=== PATIENT | female | born 1955 | race Caucasian/White ===

== ENCOUNTER 2022-06-06 16:03 | Inpatient (IN) ==
[~2022-06-06 16:03] MED LIST: hydrALAZINE HCL 20 MG/ML VIAL IV ONE
--- NOTE | 2022-06-06 16:11 | ED Triage Note ---
Date of Service June 06, 2022 History of Present Illness This patient was briefly evaluated while in triage. An abbreviated physical exam was performed. This patient is a 66-year-old Female with past medical history of "both of her carotid arteries are 100% blocked" who presents to the ED for evaluation of " she's having stroke symptoms again" per son. Pt. having L side paralysis, neck pain. Symptoms began 2 days ago, was seen in the ED ([place]), symptoms getting worse. On plavix. Physical Exam VITALS: Vitals are noted on the nurse's note and reviewed by myself. GENERAL: This is a 66 year old white female, in no acute distress, nondiaphoretic, well-developed well-nourished. SKIN: no rashes, edema, erythema HEAD: Normocephalic atraumatic. EYES: Conjunctivae without injection, sclerae without icterus. Extraocular movements intact. NECK: No lymphadenopathy. Cervical spine is nontender. No JVD. HEART: Regular rate and rhythm without murmurs gallops or rubs. LUNGS: Clear to auscultation bilaterally without wheezes, rales or rhonchi. No retractions or accessory muscle use. MUSCULOSKELETAL: Pt. in wheelchair. Weakness LUE, LLE. NEURO: Patient was alert and oriented to person place and time. Left side weakness, LUE, LLE. Campus Interviews Intern strength 1/5 LUE. Initial orders for labs and / or imaging were placed and patient was placed in the waiting area until a bed is available. Please see further documentation for the full ED course.
--- NOTE | 2022-06-06 16:44 | Emergency Department Note ---
Impression & Plan Cerebrovascular accident, Bilateral carotid artery disease ED Provider Note NAME: DARIAN DIEGO AGE: 66 SEX: F : 1955 ARRIVES VIA: Walk-In INFORMANT: Patient, the patient's son and [id number] ED PROVIDER(S): Cruz Simmons DO CHIEF COMPLAINT: Weakness HPI: The patient is a 66-year-old female who presented to the emergency department through triage with her family members for an evaluation of left- sided weakness. The patient has a history of CVA. She was recently treated for CVA. She was seen at multiple local hospitals and ultimately was recently discharged from inpatient rehab for having a stroke which affected the left side of her body. She has bilateral carotid artery disease. She is not been seen in our facility. She is being established with a local primary care physician. The family noted that over the last few days she was starting to have worsening symptoms including worsening left-sided weakness and confusion as well as a headache which was in her occipital region. The patient has been compliant with her outpatient medications. Apparently they had a scheduled appointment with her primary care physician today. They were told to come directly to the ER rather than the office because the patient's symptoms. She has had no vomiting or falls. She has no lower extremity swelling. According to the family she is not a candidate for operative management of her carotid artery disease. ROS: See above HPI for pertinent positives & negatives. A total of 10 systems reviewed and were otherwise negative. PAST MEDICAL HISTORY: See Below PAST SURGICAL HISTORY: See Below FAMILY HISTORY: See Below SOCIAL HISTORY: See Below HOME MEDICATIONS: See Below ALLERGIES: See Below VITALS: See Below PHYSICAL EXAMINATION: GENERAL: The patient is awake and alert. The patient does not appear to be uncomfortable. EYES: The conjunctivae are clear. The pupils are round and reactive. EARS, NOSE, MOUTH AND THROAT: The nose is without any evidence of any deformity. NECK: The neck is nontender and supple. RESPIRATORY: Normal respiratory effort is noted there is no evidence of wheezing rhonchi or rales CARDIOVASCULAR: Regular heart sounds are noted auscultation. Systolic murmur suggested. GASTROINTESTINAL: The abdomen is soft. Abdomen is nontender. MUSCULOSKELETAL/EXTREMITIES: There is no evidence of gross deformity full range of motion is noted in the hips and shoulders. SKIN: There is no obvious evidence of any rash. There are no petechiae, pallor or cyanosis noted. NEUROLOGIC: Patient is awake alert and oriented to person place and situation. She recognizes her family members. Automotive L[employer] Technician strength is absent in the left upper extremity. The patient is unable to lift the left leg off the bed. MEDICAL DECISION MAKING: The patient is a 66-year-old female who presented to the emergency department for an evaluation of strokelike symptoms. The patient does have a history of carotid artery disease. She had a significant stroke leaving her with left- sided weakness. Her family felt that her symptoms were worsening. She presented to our emergency department for further evaluation. The patient was found to have signs of subacute infarct which likely explain the patient's more recent symptoms. I do feel it is possible that these plaques and occlusions in her carotid arteries could be continuing to shower emboli. I discussed this with the family. She currently is on antiplatelet therapy. I discussed the case with the on-call [facility] hospitalist. They have agreed to evaluate the patient in the emergency department for further management and disposition. Triage Nursing notes reviewed. Prior medical records reviewed Vital Signs: reviewed and remarkable for elevated blood pressure Differential diagnosis: Infection, dehydration, metabolic abnormality, hypo/hyperglycemia, electrolyte disturbance, anemia, hypoxia, cardiac sources, intracerebral event, toxicologic, neurologic, as well as other pathologies. ER treatment provided: See below Diagnostics interpreted by me: ECG: EKG was obtained in the emergency department. My interpretation is normal sinus rhythm at 93 bpm. There is no ectopy. There was no acute ST segment abnormalities noted. No previous tracing was available. Cardiac Monitoring: An order was placed for continuous cardiac monitoring. The monitor shows a rate of 69 bpm with sinus rhythm. Laboratory studies: As stated above and show below. Imaging studies: See below Consultation(s): I discussed this case with Dr. Araiza Past Med/Surg History Medical History (Updated 06/06/22 @ 21:31 by Cruz Simmons DO) Carotid artery disease CVA (cerebral vascular accident) High cholesterol Social History Smoking Status: Former smoker Preferred Language: Icelandic Feels Safe at Home: Yes Allergies Allergies Allergy/AdvReac Type Severity Reaction Status Date / Time No Known Allergies Allergy Unverified 06/06/22 20:24 Home Meds Home Medications Medication Instructions Recorded Confirmed aspirin 81 mg chewable tablet 81 mg PO DAILY 06/06/22 06/06/22 atorvastatin 40 mg tablet 80 mg PO DAILY 06/06/22 06/06/22 clopidogrel 75 mg tablet 75 mg PO DAILY 06/06/22 06/06/22 midodrine 2.5 mg tablet 2.5 mg PO TID 06/06/22 06/06/22 multivitamin 1 tab PO DAILY 06/06/22 06/06/22 Results & Data (ED) Vital Signs Vital Signs - 24 hr 06/06/22 16:05 06/06/22 16:40 06/06/22 18:04 Temperature 36.9 C Temperature Source Temporal Artery Scan Pulse Rate 96 H Pulse Rate [Apical] 73 69 Pulse Rhythm Regular Pulse Strength Normal Respiratory Rate 20 18 18 Respiratory Effort / Characteristics Non-Labored Spontaneous Non-Labored Spontaneous Non-Labored Spontaneous Respiratory Depth Normal Normal Normal Respiratory Pattern Regular Regular Regular Blood Pressure 115/69 Blood Pressure [Right Arm] 163/82 H 152/75 H Blood Pressure Mean 84 Blood Pressure Mean [Right Arm] 109 100 Blood Pressure Position Sitting Blood Pressure Position [Right Arm] Sitting Sitting Pulse Oximetry 95 97 97 Oxygen Delivery Method Room Air Room Air Room Air Sepsis Recent Fever Within 48 Hours No Sepsis New/Unexplained Change in Mental Status No Sepsis Action Taken by Nursing No Action Required Laboratory Data Attestation: I reviewed the patient's lab results. Result diagrams: 06/06/22 16:29 06/06/22 16:29 Lab Results 06/06/22 06/06/22 06/06/22 Range/Units 16:29 16:29 16:29 WBC 8.96 (4.8-10.8) K/ul RBC 4.08 (3.93-5.22) M/uL Hgb 12.2 (12.0-16.0) g/dl Hct 36.2 (34.1-44.9) % MCV 88.7 (80.0-100.0) fL MCH 29.9 (25.0-34.0) pg MCHC 33.7 (32.0-36.0) g/dL RDW Std Deviation 43.4 (36.4-46.3) fL RDW Coeff of Gilbert 13.2 (11.5-14.5) % Plt Count 350 (130-400) K/uL MPV 10.7 (9.4-12.3) fL Immature Gran % (Auto) 0.1 % Neut % (Auto) 61.9 % Lymph % (Auto) 23.7 % [place] % (Auto) 9.3 % Eos % (Auto) 4.0 % Baso % (Auto) 1.0 % Neut # (Auto) 5.55 (1.4-6.5) K/uL Lymph # (Auto) 2.12 (1.2-3.4) K/uL [place] # (Auto) 0.83 H (0.24-0.82) K/uL Eos # (Auto) 0.36 (0-0.50) K/uL Baso # (Auto) 0.09 (0-0.2) K/uL Immature Gran # (Auto) 0.01 (0.00-0.02) K/uL PT 10.3 (9.0-12.0) Seconds INR 1.0 (0.9-1.1) APTT 25.4 (21.0-31.0) Seconds PTT Ratio 0.9 Sodium 139 (136-145) mmol/L Potassium 4.3 (3.5-5.1) mmol/L Chloride 106 (98-107) mmol/L Carbon Dioxide 27 (21-32) mmol/L Anion Gap 6 (3-11) BUN 18 (6-23) mg/dl Creatinine 0.73 (0.6-1.2) mg/dl Est Cr Clr Drug Dosing Not Reportable Est GFR ( Amer) 98.1 ml/min Est GFR (Non-Af Amer) 84.6 ml/min BUN/Creatinine Ratio 24.7 H (10-20) Glucose 98 (70-99(Fasting)) mg/dl Calcium 9.7 (8.5-10.1) mg/dl Magnesium 2.2 (1.7-2.4) mg/dl Total Bilirubin 0.3 (0.2-1.0) mg/dl AST 38 (13-39) U/L ALT 62 H (7-52) U/L Alkaline Phosphatase 147 H (34-104) U/L Troponin I High Sens 5.7 (0-14) pg/ml Total Protein 7.5 (6.0-8.3) gm/dl Albumin 4.5 (3.4-5.0) gm/dl Globulin 3.0 (2.5-4.0) gm/dl Albumin/Globulin Ratio 1.5 (0.9-2) SARS-CoV-2, RNA, NAAT (NEGATIVE) 06/06/22 Range/Units 17:09 WBC (4.8-10.8) K/ul RBC (3.93-5.22) M/uL Hgb (12.0-16.0) g/dl Hct (34.1-44.9) % MCV (80.0-100.0) fL MCH (25.0-34.0) pg MCHC (32.0-36.0) g/dL RDW Std Deviation (36.4-46.3) fL RDW Coeff of Gilbert (11.5-14.5) % Plt Count (130-400) K/uL MPV (9.4-12.3) fL Immature Gran % (Auto) % Neut % (Auto) % Lymph % (Auto) % [place] % (Auto) % Eos % (Auto) % Baso % (Auto) % Neut # (Auto) (1.4-6.5) K/uL Lymph # (Auto) (1.2-3.4) K/uL [place] # (Auto) (0.24-0.82) K/uL Eos # (Auto) (0-0.50) K/uL Baso # (Auto) (0-0.2) K/uL Immature Gran # (Auto) (0.00-0.02) K/uL PT (9.0-12.0) Seconds INR (0.9-1.1) APTT (21.0-31.0) Seconds PTT Ratio Sodium (136-145) mmol/L Potassium (3.5-5.1) mmol/L Chloride (98-107) mmol/L Carbon Dioxide (21-32) mmol/L Anion Gap (3-11) BUN (6-23) mg/dl Creatinine (0.6-1.2) mg/dl Est Cr Clr Drug Dosing Est GFR ( Amer) ml/min Est GFR (Non-Af Amer) ml/min BUN/Creatinine Ratio (10-20) Glucose (70-99(Fasting)) mg/dl Calcium (8.5-10.1) mg/dl Magnesium (1.7-2.4) mg/dl Total Bilirubin (0.2-1.0) mg/dl AST (13-39) U/L ALT (7-52) U/L Alkaline Phosphatase (34-104) U/L Troponin I High Sens (0-14) pg/ml Total Protein (6.0-8.3) gm/dl Albumin (3.4-5.0) gm/dl Globulin (2.5-4.0) gm/dl Albumin/Globulin Ratio (0.9-2) SARS-CoV-2, RNA, NAAT NEGATIVE (NEGATIVE) Administered Medications Sodium Chloride (Nss 1000ml) 1,000 mls @ 60 mls/hr IV .[id number] ONE Stop: 06/07/22 12:07 Last Admin: 06/06/22 19:40 Dose: 60 mls/hr Documented by: [id number] Discontinued Medications Ioversol (Optiray 320 125ml) 120 ml IV ONCE ONE Stop: 06/06/22 18:01 Last Admin: 06/06/22 18:01 Dose: 120 ml Documented by: [id number] Imaging Data Radiologist's Impression: Head CT 06/06/22 16:11 CT OF THE HEAD WITHOUT CONTRAST CLINICAL HISTORY: Stroke Like Symptoms COMPARISON STUDY: No previous studies for comparison. TECHNIQUE: Helical axial images of the head were obtained without IV contrast. Automated exposure control was utilized for the study. A dose lowering technique was utilized adhering to the principles of ALARA. FINDINGS: No acute intracranial hemorrhage, midline shift or mass effect is present. The ventricular system is unremarkable. Basal cisterns are patent. There are no extra-axial collections. White matter hypodensity suggests small vessel disease. Note is made of a 2.3 x 2 cm hypodense focus with loss of silva- white differentiation within the anterior medial right frontal lobe shown on axial image 17 of 32. There is no significant mass effect. A white matter hypodensity measuring 3.1 cm within the right frontoparietal region on axial image 23 is noted. IMPRESSION: 1. No acute intracranial hemorrhage or mass effect. 2. 2.3 x 2 cm hypodense focus with loss of silva-white differentiation within the anterior medial right frontal lobe. This represents an acute to subacute infarct. No mass effect. No hemorrhage. 3. 3.1 cm hypodense focus within the right matter of the right frontoparietal region. This favors small vessel disease although an additional acute to subacute infarct could appear similar. ACT 112: Negative or not required by law. Electronically signed by: Todd Jensen M.D. 06/06/2022 6:15 PM Head CTA 06/06/22 16:11 CTA ANGIOGRAPHY OF THE HEAD CLINICAL HISTORY: Stroke Like Symptoms COMPARISON STUDY: No previous studies for comparison. TECHNIQUE: Helical axial images of the head were obtained following uneventful intravenous administration of 120 cc of Optiray. Sagittal and coronal reconstructions were viewed as well as maximal intensity projections on an independent 3-D workstation. Automated exposure control was utilized for the study. A dose lowering technique was utilized adhering to the principles of ALARA. FINDINGS: Head CT will be reported separately. Ventricular system is normal. Basal cisterns are patent. An acute to subacute infarct within the anterior medial right frontal lobe is better depicted on the head CT. There is occlusion of the cervical portions of the bilateral internal carotid arteries with reconstitution at the level of the petrous portions. The petrous and cavernous portion of the right internal carotid artery is diminutive. The right M1 and M2 segments are patent. The right A1 segment is patent. Right A1 segment is patent. There is occlusion of a branch of the right anterior cerebral artery segment shown on axial image 117 of 249. This accounts for the infarct shown on head CT. The left A1, A2, M1 and M2 segments are patent. There is no intracranial aneurysm. persistence of the right posterior cerebral artery is noted. Intracranial portions of the vertebral arteries are patent. Basilar artery is patent. IMPRESSION: 1. Occlusion of the bilateral cervical internal carotid arteries with reconstitution at the level of the petrous portions of the carotids. 2. Occlusion of a branch of the right anterior cerebral artery which accounts for the acute to subacute infarct shown on head CT. 3. No additional sites of vessel occlusion identified within the intracranial circulation. ACT 112: Negative or not required by law. Electronically signed by: Todd Jensen M.D. 06/06/2022 6:49 PM Neck CTA 06/06/22 16:11 CT ANGIOGRAPHY OF THE NECK WITH CONTRAST CLINICAL HISTORY: Stroke Like Symptoms COMPARISON STUDY: No previous studies for comparison. Technique: CT angiography of the carotid and vertebral arteries was obtained using Optiray and 3D reconstruction on an independent workstation. NASCET criteria was utilized. Automated exposure control was utilized for the study. A dose lowering technique was utilized adhering to the principles of ALARA. CT DOSE: 1729.98 mGy.cm Findings: Emphysema is noted within the lung apices. There is no cervical lymphadenopathy. The bilateral vertebral arteries are patent. No stenosis or dissection within the cervical portions of the bilateral vertebral arteries is noted. The bilateral common carotid arteries are patent. There is moderate atherosclerotic plaque of the aortic arch. Extensive plaque within the bilateral cervical internal carotid arteries is noted. The bilateral cervical internal carotid arteries are occluded at their origins with reconstitution at the level of the petrous portions of the carotids. CT of the head will be reported separately. IMPRESSION: 1. Severe atherosclerotic disease with occlusion of the bilateral cervical internal carotid arteries with reconstitution at the level of the petrous portions of the carotids. 2. Patent bilateral vertebral arteries. ACT 112: Negative or not required by law. Electronically signed by: Todd Jensen M.D. 06/06/2022 6:44 PM Discharge Plan Visit Data Chief Complaint: Stroke/CVA Symptoms Stated Complaint: L SIDE WEAKNESS. LOSS OF MOBILITY. PAIN IN NECK ED Provider: Cruz Simmons Discharge Problem: Cerebrovascular accident, Bilateral carotid artery disease Patient Disposition: Being Evaluated by Hospitalist Forms Stand Alone Forms: My [facility]Anthem Prescriptions Prescriptions: No Action multivitamin Tablet 1 tab PO DAILY RF: 0 atorvastatin 40 mg tablet 80 mg PO DAILY RF: 0 clopidogrel 75 mg tablet 75 mg PO DAILY RF: 0 aspirin [Baby Aspirin] 81 mg Tablet,Chewable 81 mg PO DAILY RF: 0 midodrine 2.5 mg tablet 2.5 mg PO TID RF: 0 Referrals Referrals: PCP,NO [Physician] -
[2022-06-06 17:02] LABS: Alanine Aminotransferase 62 U/L (7-52); Albumin Globulin Ratio 1.5 (0.9-2); Albumin Level 4.5 gm/dl (3.4-5.0); Alkaline Phosphatase 147 U/L (34-104); Anion Gap 6 (3-11); Aspartate Aminotransferase 38 U/L (13-39); BUN Creatinine Ratio 24.7 (10-20); Bilirubin,Total 0.3 mg/dl (0.2-1.0); Blood Urea Nitrogen 18 mg/dl (6-23); Calcium 9.7 mg/dl (8.5-10.1); Carbon Dioxide 27 mmol/L (21-32); Chloride 106 mmol/L (98-107); Est GFR (African American) 98.1 ml/min; Est GFR (Non-African American) 84.6 ml/min; Glucose 98 mg/dl (70-99(Fasting)); Magnesium 2.2 mg/dl (1.7-2.4); Potassium 4.3 mmol/L (3.5-5.1); Sodium 139 mmol/L (136-145); Total Protein 7.5 gm/dl (6.0-8.3)
[2022-06-06 17:05] LABS: Basophils # (auto) 0.09 K/uL (0-0.2); Eosinophils # (auto) 0.36 K/uL (0-0.50); Hematocrit (blood only) 36.2 % (34.1-44.9); Hemoglobin 12.2 g/dl (12.0-16.0); Immature Granulocytes # (auto) 0.01 K/uL (0.00-0.02); Immature Granulocytes % (auto) 0.1 %; Lymphocytes # (auto) 2.12 K/uL (1.2-3.4); Lymphocytes % (auto) 23.7 %; Mean Corpuscular Hemoglobin 29.9 pg (25.0-34.0); Mean Corpuscular Hgb Conc 33.7 g/dL (32.0-36.0); Mean Corpuscular Volume 88.7 fL (80.0-100.0); Mean Platelet Volume 10.7 fL (9.4-12.3); Monocytes # (auto) 0.83 K/uL (0.24-0.82); Monocytes % (auto) 9.3 %; Neutrophils # (auto) 5.55 K/uL (1.4-6.5); Neutrophils % (auto) 61.9 %; Platelet Count 350 K/uL (130-400); RDW Coefficient of Variation 13.2 % (11.5-14.5); RDW Standard Deviation 43.4 fL (36.4-46.3); Red Blood Count 4.08 M/uL (3.93-5.22); White Blood Count 8.96 K/ul (4.8-10.8)
[2022-06-06 17:06] LABS: Partial Thromboplastin Ratio 0.9; Partial Thromboplastin Time 25.4 Seconds (21.0-31.0); Prothrombin Time 10.3 Seconds (9.0-12.0)
[2022-06-06 17:08] LABS: Troponin I High Sensitivity 5.7 pg/ml (0-14)
[2022-06-06] MEDS ORDERED: OPTIRAY 320 125ml IV ONE (18:00)
--- NOTE | 2022-06-06 18:17 | CT Scan Report ---
CT OF THE HEAD WITHOUT CONTRAST CLINICAL HISTORY: Stroke Like Symptoms COMPARISON STUDY: No previous studies for comparison. TECHNIQUE: Helical axial images of the head were obtained without IV contrast. Automated exposure con trol was utilized for the study. A dose lowering technique was utilized adhering to the principles o f ALARA. FINDINGS: No acute intracranial hemorrhage, midline shift or mass effect is present. The ventricular system is unremarkable. Basal cisterns are patent. There are no extra-axial collections. White matter hypodensity suggests small vessel disease. Note is made of a 2.3 x 2 cm hypodense focus with loss of silva-white differentiation within the anterior medial right frontal lobe shown on axial image 17 of 32. There is no significant mass effect. A white matter hypodensity measuring 3.1 cm within the right frontoparietal region on axial image 23 is noted. IMPRESSION: 1. No acute intracranial hemorrhage or mass effect. 2. 2.3 x 2 cm hypodense focus with loss of silva-white differentiation within the anterior medial righ t frontal lobe. This represents an acute to subacute infarct. No mass effect. No hemorrhage. 3. 3.1 cm hypodense focus within the right matter of the right frontoparietal region. This favors sma ll vessel disease although an additional acute to subacute infarct could appear similar. ACT 112: Negative or not required by law. Electronically signed by: Todd Jensen M.D. 06/06/2022 6:15 PM
--- NOTE | 2022-06-06 18:47 | CT Scan Report ---
CT ANGIOGRAPHY OF THE NECK WITH CONTRAST CLINICAL HISTORY: Stroke Like Symptoms COMPARISON STUDY: No previous studies for comparison. Technique: CT angiography of the carotid and vertebral arteries was obtained using Optiray and 3D rec onstruction on an independent workstation. NASCET criteria was utilized. Automated exposure control was utilized for the study. A dose lowering technique was utilized adhering to the principles of ALA RA. CT DOSE: 1729.98 mGy.cm Findings: Emphysema is noted within the lung apices. There is no cervical lymphadenopathy. The bilate ral vertebral arteries are patent. No stenosis or dissection within the cervical portions of the bila teral vertebral arteries is noted. The bilateral common carotid arteries are patent. There is moderat e atherosclerotic plaque of the aortic arch. Extensive plaque within the bilateral cervical internal carotid arteries is noted. The bilateral cervical internal carotid arteries are occluded at their dilip gins with reconstitution at the level of the petrous portions of the carotids. CT of the head will be reported separately. IMPRESSION: 1. Severe atherosclerotic disease with occlusion of the bilateral cervical internal carotid arteries with reconstitution at the level of the petrous portions of the carotids. 2. Patent bilateral vertebral arteries. ACT 112: Negative or not required by law. Electronically signed by: Todd Jensen M.D. 06/06/2022 6:44 PM
--- NOTE | 2022-06-06 18:52 | CT Scan Report ---
CTA ANGIOGRAPHY OF THE HEAD CLINICAL HISTORY: Stroke Like Symptoms COMPARISON STUDY: No previous studies for comparison. TECHNIQUE: Helical axial images of the head were obtained following uneventful intravenous administr ation of 120 cc of Optiray. Sagittal and coronal reconstructions were viewed as well as maximal inten sity projections on an independent 3-D workstation. Automated exposure control was utilized for the study. A dose lowering technique was utilized adhering to the principles of ALARA. FINDINGS: Head CT will be reported separately. Ventricular system is normal. Basal cisterns are paten t. An acute to subacute infarct within the anterior medial right frontal lobe is better depicted on t he head CT. There is occlusion of the cervical portions of the bilateral internal carotid arteries wi th reconstitution at the level of the petrous portions. The petrous and cavernous portion of the righ t internal carotid artery is diminutive. The right M1 and M2 segments are patent. The right A1 segmen t is patent. Right A1 segment is patent. There is occlusion of a branch of the right anterior cerebra l artery segment shown on axial image 117 of 249. This accounts for the infarct shown on head CT. The left A1, A2, M1 and M2 segments are patent. There is no intracranial aneurysm. persistence of the right posterior cerebral artery is noted. Intracranial portions of the vertebral arteries are pat ent. Basilar artery is patent. IMPRESSION: 1. Occlusion of the bilateral cervical internal carotid arteries with reconstitution at the level of the petrous portions of the carotids. 2. Occlusion of a branch of the right anterior cerebral artery which accounts for the acute to subacu te infarct shown on head CT. 3. No additional sites of vessel occlusion identified within the intracranial circulation. ACT 112: Negative or not required by law. Electronically signed by: Todd Jensen M.D. 06/06/2022 6:49 PM
[2022-06-06] MEDS ORDERED: SODIUM CHLORIDE 0.9% 1000ML 1,000 ML IV ONE (19:28)
--- NOTE | 2022-06-06 20:13 | History & Physical Report ---
Date of Service June 06, 2022 Assessment & Plan (1) Cerebrovascular accident: Plan: Recurrent CVA Possible embolic source hx PVD hyperlipidemia on statin Rx Moderate aortic stenosis orthostatic hypotension on midodrine, compensatory BP elevation likely secondary to stroke LLE swelling rule out DVT Prediabetes, outpatient hemoglobin A1c of 5.10 May 2022 past tobacco abuse Medical telemetry Neurochecks Continue antiplatelet Rx Updated TTE given recurrent stroke Neurology consult Re: Recurrent CVA LLE venous Dopplers rule out DVT PT OT eval DVT prophylaxis per Lovenox subcu Full code Patient son requesting updates from providers. Mr. Jabari Navarrete, contact #[phone]. Text document was generated using Antidot voice recognition software. It may contain grammatical or spelling errors. Kindly contact undersigned for clarification of any documentation item in question. History of Present Illness Chief Complaint: Left-sided weakness Primary Care Provider: Luis Curry MD History obtained from patient, family, and records. Medical history significant for CVA, PVD, hyperlipidemia, aortic stenosis, orthostatic hypotension on midodrine, prediabetes, past tobacco abuse. Patient was seen/confined at different ERs/hospitals in [place] for strokelike symptoms 6 weeks ago. Last confinement [facility] May 07 to 2021 for acute ischemic stroke presenting as presented left-sided weakness/syncope as a transfer from [facility]. Pertinent diagnostics prior to [facility] confinement as follows : Brain MRI showed multiple small infarcts in the right hemisphere located at the right parietal cortex, right frontal white matter, right posterior periventricular white matter (largest lesion located adjacent to the atrium of the lateral ventricle on the right side measuring 6 mm.). MRA showed patent anterior communicating artery and widely patent vertebral and vascular arteries with patent right posterior communicating artery. CTA revealed complete occlusion of proximal bilateral internal carotid arteries. TTE showed moderate aortic stenosis with an EF of 60%, grade 1 diastolic dysfunction. Cerebral angiogram done at [facility] confirmed atherosclerotic disease with no evidence of moyamoya. Patient discharged to rehab facility on midodrine for orthostasis. Some improvement of left-sided weakness rehab stay from May 09-2021. Patient very active upon returning home as per family. 4 days ago, patient noted worsening left-sided weakness and trouble walking. No chest pain, no SOB. No slurred speech, no headache symptoms some neck pain without recollection of trauma. Did not tell family right away. Patient evaluated at [facility] ER 2 days ago. No focal neurologic deficits necessitating CT head as per ER provider documentation at time of exam. Patient discharged back home with negative work-up. Patient brought by family to ER for evaluation for worsening left-sided weakness. Left lower leg more swollen than usual as per family. Patient denies chest pain, SOB. Medical History as above Surgical History : None Family History : Stroke, blood clots Personal/Social history : Past tobacco abuse, no EtOH intake, retired from factory work Allergies Allergy/AdvReac Type Severity Reaction Status Date / Time No Known Allergies Allergy Unverified 06/06/22 20:24 Home Medications Medication Instructions Recorded Confirmed Type aspirin 81 mg chewable tablet 81 mg PO DAILY 06/06/22 06/06/22 History atorvastatin 40 mg tablet 80 mg PO DAILY 06/06/22 06/06/22 History clopidogrel 75 mg tablet 75 mg PO DAILY 06/06/22 06/06/22 History midodrine 2.5 mg tablet 2.5 mg PO TID 06/06/22 06/06/22 History multivitamin 1 tab PO DAILY 06/06/22 06/06/22 History Past Med/Surg History Medical History (Updated 06/06/22 @ 21:31 by Cruz Simmons DO) Carotid artery disease CVA (cerebral vascular accident) High cholesterol Social History Smoking Status: Former smoker Smoking End Date: 5 weeks ago; Hx Alcohol Use: Yes Hx Substance Use: No Preferred Language: Malay Communication Ability: Effective Breakfast Manager Required: No Beliefs That Will Affect Care: None Current Living Situation Comment: Lives with son and his Feels Safe at Home: Yes Safety Concerns: Feels Safe At This Time Assistive Devices: Glasses Review of Systems Review of Systems: As per HPI, all other systems reviewed and negative Physical Exam Physical Exam: GENERAL: Comfortable, slightly anxious, no respiratory distress SKIN: Normal color, warm HEENT: Bespectacled, Mullins palpebral conjunctivae, no ptosis, dry buccal mucosa NECK : Supple, no tenderness CHEST : Decreased breath sounds, no tenderness HEART : RRR, systolic murmur over sternal border and second right intercostal space ABDOMEN: Some distention, nontender EXTREMITIES : LLE swelling/tenderness, no other conspicuous deformities noted NEUROLOGIC : Coherent, no facial asymmetry, RUE/RLE 4/5, LUE 3/5 with some spasticity, LLE 2/5, gait and stance not assessed Results & Data Results & Data ([facility]) Vital Signs (Past 12 Hours) Vital Signs Temp Pulse Pulse Resp BP BP Pulse Ox 06/06/22 18:04 69 18 152/75 H 97 06/06/22 16:40 73 18 163/82 H 97 06/06/22 16:05 36.9 C 96 H 20 115/69 95 Laboratory Results Laboratory Results WBC 8.96 K/ul (4.8-10.8) 06/06/22 16:29 RBC 4.08 M/uL (3.93-5.22) 06/06/22 16:29 Hgb 12.2 g/dl (12.0-16.0) 06/06/22 16:29 Hct 36.2 % (34.1-44.9) 06/06/22 16:29 MCV 88.7 fL (80.0-100.0) 06/06/22 16:29 MCH 29.9 pg (25.0-34.0) 06/06/22 16:29 MCHC 33.7 g/dL (32.0-36.0) 06/06/22 16:29 RDW Std Deviation 43.4 fL (36.4-46.3) 06/06/22 16:29 RDW Coeff of Gilbert 13.2 % (11.5-14.5) 06/06/22 16:29 Plt Count 350 K/uL (130-400) 06/06/22 16:29 MPV 10.7 fL (9.4-12.3) 06/06/22 16:29 Immature Gran % (Auto) 0.1 % 06/06/22 16:29 Neut % (Auto) 61.9 % 06/06/22 16:29 Lymph % (Auto) 23.7 % 06/06/22 16:29 [place] % (Auto) 9.3 % 06/06/22 16:29 Eos % (Auto) 4.0 % 06/06/22 16:29 Baso % (Auto) 1.0 % 06/06/22 16:29 Neut # (Auto) 5.55 K/uL (1.4-6.5) 06/06/22 16: Lymph # (Auto) 2.12 K/uL (1.2-3.4) 06/06/22 16: [place] # (Auto) 0.83 K/uL (0.24-0.82) H 06/06/22 16:29 Eos # (Auto) 0.36 K/uL (0-0.50) 06/06/22 16: Baso # (Auto) 0.09 K/uL (0-0.2) 06/06/22 16: Immature Gran # (Auto) 0.01 K/uL (0.00-0.02) 06/06/22 16: PT 10.3 Seconds (9.0-12.0) 06/06/22 16: INR 1.0 (0.9-1.1) 06/06/22 16: APTT 25.4 Seconds (21.0-31.0) 06/06/22: PTT Ratio 0.9 06/06/22 16: Sodium 139 mmol/L (136-145) 06/06/22 16: Potassium 4.3 mmol/L (3.5-5.1) 06/06/22 16: Chloride 106 mmol/L (98-107) 06/06/22 16: Carbon Dioxide 27 mmol/L (21-32) 06/06/22 16:29 Anion Gap 6 (3-11) 06/06/22 16: BUN 18 mg/dl (6-23) 06/06/22 16: Creatinine 0.73 mg/dl (0.6-1.2) 06/06/22 16:29 Est Cr Clr Drug Dosing Not Reportable 06/06/22 16:29 Est GFR ( Amer) 98.1 ml/min 06/06/22 16: Est GFR (Non-Af Amer) 84.6 ml/min 06/06/22 16:29 BUN/Creatinine Ratio 24.7 (10-20) H 06/06/22 16:29 Glucose 98 mg/dl (70-99(Fasting)) 06/06/22 16: Calcium 9.7 mg/dl (8.5-10.1) 06/06/22 16:29 Magnesium 2.2 mg/dl (1.7-2.4) 06/06/22 16:29 Total Bilirubin 0.3 mg/dl (0.2-1.0) 06/06/22 16:29 AST 38 U/L (13-39) 06/06/22 16:29 ALT 62 U/L (7-52) H 06/06/22 16:29 Alkaline Phosphatase 147 U/L (34-104) H 06/06/22 16:29 Troponin I High Sens 5.7 pg/ml (0-14) 06/06/22 16:29 Total Protein 7.5 gm/dl (6.0-8.3) 06/06/22 16:29 Albumin 4.5 gm/dl (3.4-5.0) 06/06/22 16:29 Globulin 3.0 gm/dl (2.5-4.0) 06/06/22 16:29 Albumin/Globulin Ratio 1.5 (0.9-2) 06/06/22 16:29 SARS-CoV-2, RNA, NAAT NEGATIVE (NEGATIVE) 06/06/22 17:[address] 06/06/22 16:11 CT OF THE HEAD WITHOUT CONTRAST CLINICAL HISTORY: Stroke Like Symptoms COMPARISON STUDY: No previous studies for comparison. TECHNIQUE: Helical axial images of the head were obtained without IV contrast. Automated exposure control was utilized for the study. A dose lowering technique was utilized adhering to the principles of ALARA. FINDINGS: No acute intracranial hemorrhage, midline shift or mass effect is present. The ventricular system is unremarkable. Basal cisterns are patent. There are no extra-axial collections. White matter hypodensity suggests small vessel disease. Note is made of a 2.3 x 2 cm hypodense focus with loss of silva- white differentiation within the anterior medial right frontal lobe shown on axial image 17 of 32. There is no significant mass effect. A white matter hypodensity measuring 3.1 cm within the right frontoparietal region on axial image 23 is noted. IMPRESSION: 1. No acute intracranial hemorrhage or mass effect. 2. 2.3 x 2 cm hypodense focus with loss of silva-white differentiation within the anterior medial right frontal lobe. This represents an acute to subacute infarct. No mass effect. No hemorrhage. 3. 3.1 cm hypodense focus within the right matter of the right frontoparietal region. This favors small vessel disease although an additional acute to subacute infarct could appear similar. ACT 112: Negative or not required by law. Electronically signed by: Todd Jensen M.D. 06/06/2022 6:15 PM Head CTA 06/06/22 16:11 CTA ANGIOGRAPHY OF THE HEAD CLINICAL HISTORY: Stroke Like Symptoms COMPARISON STUDY: No previous studies for comparison. TECHNIQUE: Helical axial images of the head were obtained following uneventful intravenous administration of 120 cc of Optiray. Sagittal and coronal reconstructions were viewed as well as maximal intensity projections on an [employer] 3-D workstation. Automated exposure control was utilized for the study. A dose lowering technique was utilized adhering to the principles of ALARA. FINDINGS: Head CT will be reported separately. Ventricular system is normal. Basal cisterns are patent. An acute to subacute infarct within the anterior medial right frontal lobe is better depicted on the head CT. There is occlusion of the cervical portions of the bilateral internal carotid arteries with reconstitution at the level of the petrous portions. The petrous and cavernous portion of the right internal carotid artery is diminutive. The right M1 and M2 segments are patent. The right A1 segment is patent. Right A1 segment is patent. There is occlusion of a branch of the right anterior cerebral artery segment shown on axial image 117 of 249. This accounts for the infarct shown on head CT. The left A1, A2, M1 and M2 segments are patent. There is no intracranial aneurysm. persistence of the right posterior cerebral artery is noted. Intracranial portions of the vertebral arteries are patent. Basilar artery is patent. IMPRESSION: 1. Occlusion of the bilateral cervical internal carotid arteries with reconstitution at the level of the petrous portions of the carotids. 2. Occlusion of a branch of the right anterior cerebral artery which accounts for the acute to subacute infarct shown on head CT. 3. No additional sites of vessel occlusion identified within the intracranial circulation. ACT 112: Negative or not required by law. Electronically signed by: Todd Jensen M.D. 06/06/2022 6:49 PM Neck CTA 06/06/22 16:11 CT ANGIOGRAPHY OF THE NECK WITH CONTRAST CLINICAL HISTORY: Stroke Like Symptoms COMPARISON STUDY: No previous studies for comparison. Technique: CT angiography of the carotid and vertebral arteries was obtained using Optiray and 3D reconstruction on an independent workstation. NASCET criteria was utilized. Automated exposure control was utilized for the study. A dose lowering technique was utilized adhering to the principles of ALARA. CT DOSE: 1729.98 mGy.cm Findings: Emphysema is noted within the lung apices. There is no cervical lymphadenopathy. The bilateral vertebral arteries are patent. No stenosis or dissection within the cervical portions of the bilateral vertebral arteries is noted. The bilateral common carotid arteries are patent. There is moderate atherosclerotic plaque of the aortic arch. Extensive plaque within the bilateral cervical internal carotid arteries is noted. The bilateral cervical internal carotid arteries are occluded at their origins with reconstitution at the level of the petrous portions of the carotids. CT of the head will be reported separately. IMPRESSION: 1. Severe atherosclerotic disease with occlusion of the bilateral cervical internal carotid arteries with reconstitution at the level of the petrous portions of the carotids. 2. Patent bilateral vertebral arteries. ACT 112: Negative or not required by law. Electronically signed by: Tdod Jensen M.D. 06/06/2022 6:44 PM Diagnostic Findings EKG as per my interpretation: Rate 95, NSR, normal axis, incomplete RBBB, T wave abnormalities septal leads (1) Cerebrovascular accident CVA mechanism: unspecified Qualified Code(s): I63.9 - Cerebral infarction, unspecified
[2022-06-06] MEDS ORDERED: hydrALAZINE HCL 20 MG/ML VIAL ONE (21:55)
[2022-06-07] MEDS ORDERED: ACETAMINOPHEN 325 MG TAB PO PRN (00:03)
[2022-06-07] MEDS ORDERED: PHARMACIST DISCHARGE MED REC CONSULT PRN (00:03)
[2022-06-07] MEDS ORDERED: Patient's HEIGHT &/or WEIGHT Needed ONE (00:30)
[2022-06-07] MEDS ORDERED: hydrALAZINE HCL 20 MG/ML VIAL IV ONE (02:41)
[2022-06-07] MEDS ORDERED: PNEUMOCOCCAL POLYSACCHARIDES 25 MCG/0.5 ML VIAL/SYR IM ONE (04:22)
[2022-06-07] MEDS: MIDODRINE HCL 2.5 MG TAB PO SCH ×3 (06:21→17:00)
[2022-06-07 06:58] LABS: BUN Creatinine Ratio 19.7 (10-20); Calcium 9.3 mg/dl (8.5-10.1); Creatinine Clr Calc Pharmacy 70.4 ml/min; Est GFR (African American) 105.2 ml/min; Est GFR (Non-African American) 90.8 ml/min; Potassium 3.7 mmol/L (3.5-5.1)
[2022-06-07 07:02] LABS: Basophils # (auto) 0.13 K/uL (0-0.2); Basophils % (auto) 1.2 %; Eosinophils # (auto) 0.56 K/uL (0-0.50); Eosinophils % (auto) 5.1 %; Hematocrit (blood only) 36.9 % (34.1-44.9); Hemoglobin 12.1 g/dl (12.0-16.0); Immature Granulocytes # (auto) 0.04 K/uL (0.00-0.02); Immature Granulocytes % (auto) 0.4 %; Lymphocytes # (auto) 2.32 K/uL (1.2-3.4); Lymphocytes % (auto) 21.2 %; Mean Corpuscular Hemoglobin 29.4 pg (25.0-34.0); Mean Corpuscular Hgb Conc 32.8 g/dL (32.0-36.0); Mean Corpuscular Volume 89.6 fL (80.0-100.0); Mean Platelet Volume 10.5 fL (9.4-12.3); Monocytes # (auto) 0.93 K/uL (0.24-0.82); Monocytes % (auto) 8.5 %; Neutrophils # (auto) 6.97 K/uL (1.4-6.5); Neutrophils % (auto) 63.6 %; Platelet Count 308 K/uL (130-400); RDW Coefficient of Variation 13.2 % (11.5-14.5); RDW Standard Deviation 42.9 fL (36.4-46.3); Red Blood Count 4.12 M/uL (3.93-5.22); White Blood Count 10.95 K/ul (4.8-10.8)
--- NOTE | 2022-06-07 07:12 | Ultrasound Report ---
LEFT LOWER EXTREMITY VENOUS DOPPLER HISTORY: Left leg swelling COMPARISON STUDY: None. FINDINGS: There is normal compressibility, flow, and augmentation within the left lower extremity orestes p venous system. IMPRESSION: No DVT within the left lower extremity. ACT 112: Negative or not required by law. Electronically signed by: Harinder Lanier M.D. 06/07/2022 7:11 AM
[2022-06-07] MEDS: ASPIRIN 81 MG ECTAB PO SCH (08:11)
[2022-06-07] MEDS: ENOXAPARIN INJ 40 MG/0.4 ML SYR SQ SCH (08:11)
[2022-06-07] MEDS: MULTIVITAMIN TAB PO SCH (08:12)
[2022-06-07] MEDS: CLOPIDOGREL BISULFATE 75 MG TAB PO SCH (08:12)
--- NOTE | 2022-06-07 10:50 | Hospitalist Progress Note ---
Date of Service June 07, 2022 Assessment & Plan (1) Cerebrovascular accident: Plan: CVA Possible embolic source Recent hospitalization for CVA last month Was noted to have multiple infarcts in the right hemisphere on MRI brain last month. CT angio head and neck then and now also noted complete occlusion of proximal bilateral internal carotid Also had orthostatic hypotension then and has been on midodrine CT head on admission this time noted 2.3 x 2 cm hypodense focus with loss of silva-white differentiation within the anterior medial right frontal lobe. This represents an acute to subacute infarct. No mass effect. No hemorrhage and 3.1 cm hypodense focus within the right matter of the right frontoparietal region. This favors small vessel disease although an additional acute to subacute infarct could appear similar. These may reflect recent infarcts from last month vs new ones. However, will evaluate this with Neurology Continue DAPT Continue statin Await Neurology evaluation TTE noted EF 60-65, mild to mod , trace AR, trace TR Continue midodrine Prediabetes, outpatient hemoglobin A1c of 5.10 May 2022 PT OT eval DVT prophylaxis per Lovenox subcu Full code Patient son requesting updates from providers. Mr. Jabari Navarrete, contact #[phone]. Admission and Anticipated Discharge Date Admission Date: June 06, 2022 Subjective Patient seen and examined Patient is a poor historian Reports left-sided weakness. Denies headache, nausea, vomiting Denies difficulty swallowing Reports pain in the back of the neck is resolved Denied cough, chest pain, shortness of breath Denies abdominal pain, diarrhea, constipation Denies dysuria, frequency, urgency Denied fevers or chills. Review of Systems Review of Systems: All systems reviewed & are unremarkable except as noted in Subjective Physical Exam Constitutional: + well hydrated; no acute distress Eyes: PERRL, conjunctivae normal, anicteric sclerae ENMT: external ear and nose normal, oropharynx normal Respiratory: normal respiratory effort, lungs clear to auscultation Cardiovascular: Rate/Rhythm: regular rate and regular rhythm S1 S2 Gastrointestinal (Abdomen): normal bowel sounds, soft, nontender, no hepatosplenomegaly Musculoskeletal: No pedal edema Neurologic: PERRL, EOMI, no dysarthria Left sided hemiparesis. Power in LUE 2/5, LLE 3+/5 Fine touch intact Psychiatric: Alert and oriented to person, place, year Results & Data Results & Data ([facility]) Vital Signs (Past 12 Hours) Vital Signs Temp Pulse Pulse Resp BP Pulse Ox 06/07/22 07:13 69 06/07/22 04:02 36.3 C L 70 20 165/77 H 97 06/07/22 03:37 67 06/07/22 02:14 74 16 187/97 H 95 06/07/22 02:03 68 18 134/101 H 97 06/07/22 01:07 75 16 187/79 H 94 Laboratory Results Abnormal lab results 06/06/22 06/06/22 06/07/22 Range/Units 16:29 16:29 05:58 WBC 10.95 H (4.8-10.8) K/ul Neut # (Auto) 6.97 H (1.4-6.5) K/uL [place] # (Auto) 0.83 H 0.93 H (0.24-0.82) K/uL Eos # (Auto) 0.56 H (0-0.50) K/uL Immature Gran # (Auto) 0.04 H (0.00-0.02) K/uL BUN/Creatinine Ratio 24.7 H (10-20) ALT 62 H (7-52) U/L Alkaline Phosphatase 147 H (34-104) U/L (1) Cerebrovascular accident CVA mechanism: unspecified Qualified Code(s): I63.9 - Cerebral infarction, un specified
--- NOTE | 2022-06-07 11:26 | Neurology Consultation ---
Date of Consultation June 07, 2022 Assessment & Plan (1) Cerebrovascular accident: 1. continue aspirin 81 mg and plavix 75 mg daily for now 2. optimize HLD, DM LDL <70 high normal for blood pressure would help with blood flow with the vessel occlusion. 3. would order MRI - brain with and without 4. PT/OT speech discharge needs 5. would ZIO monitor as outpatient 6. orthostatic blood pressures please order 7. needs UA checked. 8. neglect explained by location of the stroke. apathy due to frontal lobe involvement (2) Bilateral carotid artery disease: Supervising Physician Co-Signing Physician Notes I have seen and discussed above patient with Dr Fiona Haley, neurology. PT seen and examined R mca stroke with bl carotid occlusion. reported increased L weakness. P mri brain r/o new infarct, ongoing antiplt tx. Zio to r/o a fib. Avoid hypotension which could dec perfusion. Pt is very depressed rec starting antidepressants. ENRRIQUE Haley MD History of Present Illness Reason for Consultation: recurrent CVA Requesting Physician: Kathya Khan MD Attending Physician: Kathya Khan MD History of Present Illness Kathleen is a 66 year old female who presented to [facility] ED 06/06/22 through triage with her family members for an evaluation of left-sided weakness. She has a history of CVA. She was recently treated for CVA. She was seen at multiple local hospitals and ultimately was recently discharged from inpatient rehab for having a stroke which affected the left side of her body. She has bilateral carotid artery disease. The family noted that over the last few days she was starting to have worsening symptoms including worsening left-sided weakness and confusion as well as a headache which was in her occipital region. The patient has been compliant with her outpatient medications. Apparently they had a scheduled appointment with her primary care physician today. They were told to come directly to the ER rather than the office because the patient's symptoms. She has had no vomiting or falls. She has no lower extremity swelling. According to the family she is not a candidate for operative management of her carotid artery disease. She reports she has been to numerous hospitals with no new findings. she is drifting to the right and even in bed she is unable to stay upright. when asked what is wrong she starts crying. denies CP, SOB, abdominal pain. Allergies Allergy/AdvReac Type Severity Reaction Status Date / Time No Known Allergies Allergy Unverified 06/06/22 20:24 Home Medications Medication Instructions Recorded Confirmed Type aspirin 81 mg chewable tablet 81 mg PO DAILY 06/06/22 06/06/22 History atorvastatin 40 mg tablet 80 mg PO DAILY 06/06/22 06/06/22 History clopidogrel 75 mg tablet 75 mg PO DAILY 06/06/22 06/06/22 History midodrine 2.5 mg tablet 2.5 mg PO TID 06/06/22 06/06/22 History multivitamin 1 tab PO DAILY 06/06/22 06/06/22 History Patient History Medical History (Updated 06/06/22 @ 21:31 by Cruz Simmons DO) Carotid artery disease CVA (cerebral vascular accident) High cholesterol Social History Smoking Status: Former smoker Smoking End Date: 5 weeks ago; Hx Alcohol Use: Yes Hx Substance Use: No Preferred Language: Icelandic Communication Ability: Effective Creative Specialist Required: No Beliefs That Will Affect Care: None marital status: Current Living Situation Comment: Lives with son and his Feels Safe at Home: Yes Safety Concerns: Feels Safe At This Time Assistive Devices: None Review of Systems Review of Systems: All systems reviewed & are unremarkable except as noted in HPI & below Physical Exam Physical Exam: Physical Exam: Constitutional: appearance nourished, healthy and normal,leaning to the right in bed Ears, Nose, Mouth and Throat: mucous membranes moist, no injection and skin normal, eyes normal Cardiovascular: RRR systolic ejection murmer Respiratory: course breath sounds Musculoskeletal: no peripheral edema and good distal pulses Skin: no stigmata of neurocutaneous disease noted and normal and intact Eyes: extraocular muscles intact (EOMI) and pupils equal, round and reactive to light (PERRL) NEUROLOGIC EXAMINATION: Mental status: Alert and interactive Oriented to Oriented to person Speech fluent with no evidence of aphasia Cranial Nerves flattening of left nasolabial fold Reflexes: Deep tendon reflexes were symmetrical and graded 2/5. Sensory: light and cool intact Coordination: finger to nose Gait/Stance: Posture lying in bed Motor: left drift Strength: right hand audio visual production specialist biceps triceps 5/5, left 4/5, hip flex right 5/5, left 4/5, plantar flex ext right 5/5 left 4/5 Results & Data ([facility]) Vital Signs (Past 12 Hours) Vital Signs Temp Pulse Pulse Resp BP Pulse Ox 06/07/22 07:13 69 06/07/22 04:02 36.3 C L 70 20 165/77 H 97 06/07/22 03:37 67 06/07/22 02:14 74 16 187/97 H 95 06/07/22 02:03 68 18 134/101 H 97 06/07/22 01:07 75 16 187/79 H 94 Laboratory Results Abnormal lab results 06/06/22 06/06/22 06/07/22 Range/Units 16:29 16:29 05:58 WBC 10.95 H (4.8-10.8) K/ul Neut # (Auto) 6.97 H (1.4-6.5) K/uL [place] # (Auto) 0.83 H 0.93 H (0.24-0.82) K/uL Eos # (Auto) 0.56 H (0-0.50) K/uL Immature Gran # (Auto) 0.04 H (0.00-0.02) K/uL BUN/Creatinine Ratio 24.7 H (10-20) ALT 62 H (7-52) U/L Alkaline Phosphatase 147 H (34-104) U/L Diagnostic Findings CT head-No acute intracranial hemorrhage or mass effect. 2.3 x 2 cm hypodense focus with loss of silva-white differentiation within the anterior medial right frontal lobe. This represents an acute to subacute infarct. No mass effect. No hemorrhage. 3.1 cm hypodense focus within the right matter of the right frontoparietal region. This favors small vessel disease although an additional acute to subacute infarct could appear similar. CTA head neck Occlusion of the bilateral cervical internal carotid arteries with reconstitution at the level of the petrous portions of the carotids. Occlusion of a branch of the right anterior cerebral artery which accounts for the acute to subacute infarct shown on head CT. LE doppler-no DVT within the left lower extremity. (1) Cerebrovascular accident CVA mechanism: unspecified Qualified Code(s): I63.9 - Cerebral infarction, unspecified (2) Bilateral carotid artery disease Carotid artery disease type: unspecified Qualified Code(s): I77.9 - Disorder of arteries and arterioles, unspecified
--- NOTE | 2022-06-07 22:54 | Electrocardiogram Report ---
Test Reason : Blood Pressure : / mmHG Vent. Rate : 093 BPM Atrial Rate : 093 BPM P-R Int : 130 ms QRS Dur : 074 ms QT Int : 348 ms P-R-T Axes : 067 044 050 degrees QTc Int : 432 ms Poor data quality, interpretation may be adversely affected Normal sinus rhythm Nonspecific ST abnormality Abnormal ECG No previous ECGs available Confirmed by Mikey Reynolds ([id number]) on 06/07/2022 10:54:41 PM Referred By: Shukri Curry Confirmed By:Mikey Reynolds
[2022-06-07] MEDS: ATORVASTATIN 40 MG TAB PO SCH (23:51)
[2022-06-07] MEDS: traMADol HCL 50 MG TABLET PO PRN (23:51)
--- NOTE | 2022-06-08 04:00 | Communication Note ---
Date of Service: June 08, 2022 Made aware by RN of positive orthostatic vitals at 3:50 AM. Increase maintenance midodrine dose from 2.5mg TID to 5 mg TID for patient's orthostatic hypotension.
[2022-06-08 06:42] LABS: Basophils # (auto) 0.13 K/uL (0-0.2); Basophils % (auto) 1.6 %; Eosinophils # (auto) 0.53 K/uL (0-0.50); Eosinophils % (auto) 6.5 %; Hematocrit (blood only) 36.7 % (34.1-44.9); Hemoglobin 12.3 g/dl (12.0-16.0); Immature Granulocytes # (auto) 0.02 K/uL (0.00-0.02); Immature Granulocytes % (auto) 0.2 %; Lymphocytes % (auto) 23.3 %; Mean Corpuscular Hemoglobin 30.1 pg (25.0-34.0); Mean Corpuscular Hgb Conc 33.5 g/dL (32.0-36.0); Mean Platelet Volume 10.3 fL (9.4-12.3); Monocytes # (auto) 0.72 K/uL (0.24-0.82); Monocytes % (auto) 8.8 %; Neutrophils # (auto) 4.86 K/uL (1.4-6.5); Neutrophils % (auto) 59.6 %; Platelet Count 313 K/uL (130-400); RDW Coefficient of Variation 13.2 % (11.5-14.5); RDW Standard Deviation 43.3 fL (36.4-46.3); Red Blood Count 4.08 M/uL (3.93-5.22); White Blood Count 8.16 K/ul (4.8-10.8)
[2022-06-08 07:05] LABS: BUN Creatinine Ratio 23.9 (10-20); Calcium 9.4 mg/dl (8.5-10.1); Creatinine Clr Calc Pharmacy 65.5 ml/min; Est GFR (African American) 101.4 ml/min; Est GFR (Non-African American) 87.5 ml/min; Potassium 3.9 mmol/L (3.5-5.1)
[2022-06-08 07:31] LABS: Appearance Urine Clear (Clear); Bacteria Urine Automated Negative (Negative); Bilirubin Urine Negative (Negative); Blood Urine Trace (Negative); Color Urine Yellow; Glucose Urine UA Negative (Negative); Ketones Urine Negative (Negative); Leukocyte Esterase Urine Negative (Negative); Nitrite Urine Negative (Negative); Protein Urine Negative (Negative); RBC Urine Automated 0-4 /hpf (0-4); Specific Gravity Urine 1.019 (1.000-1.030); Urobilinogen Urine Negative (Negative)
[2022-06-08] MEDS: MIDODRINE HCL 2.5 MG TAB PO SCH ×3 (09:38→18:15)
[2022-06-08] MEDS: ENOXAPARIN INJ 40 MG/0.4 ML SYR SQ SCH (09:38)
[2022-06-08] MEDS: MULTIVITAMIN TAB PO SCH (09:39)
[2022-06-08] MEDS: CLOPIDOGREL BISULFATE 75 MG TAB PO SCH (09:39)
[2022-06-08] MEDS: ASPIRIN 81 MG ECTAB PO SCH (09:39)
--- NOTE | 2022-06-08 13:08 | Hospitalist Progress Note ---
Date of Service June 08, 2022 Assessment & Plan (1) Cerebrovascular accident: Plan: CVA Recent hospitalization for CVA last month Was noted to have multiple infarcts in the right hemisphere on MRI brain last month. CT angio head and neck then and now also noted complete occlusion of proximal bilateral internal carotid Also had orthostatic hypotension then and has been on midodrine CT head on admission this time noted 2.3 x 2 cm hypodense focus with loss of silva-white differentiation within the anterior medial right frontal lobe. This represents an acute to subacute infarct. No mass effect. No hemorrhage and 3.1 cm hypodense focus within the right matter of the right frontoparietal region. This favors small vessel disease although an additional acute to subacute infarct could appear similar. Neurologist recommendations noted Continue DAPT Continue statin TTE noted EF 60-65, mild to mod , trace AR, trace TR Get MRI brain w/wo co Will need zio patch testing outpatient Patient has orthostatic hypotension Midodrine increased to 5mg tid overnight Prediabetes, outpatient hemoglobin A1c of 5.10 May 2022 PT OT eval noted. Rehab recommended CM working on placement DVT prophylaxis per Lovenox subcu Full code Patient's sister came to visit her and was updated Patient son requesting updates from providers. Mr. Jabari Navarrete, contact #[phone]. Admission and Anticipated Discharge Date Admission Date: June 06, 2022 Subjective Patient seen and examined Patient is a poor historian Has left-sided weakness. Denies headache, nausea, vomiting Denies any neck pain today Denied cough, chest pain, shortness of breath Denies abdominal pain, diarrhea, constipation Denies dysuria, frequency, urgency Physical Exam Constitutional: + well hydrated; no acute distress Eyes: PERRL, conjunctivae normal, anicteric sclerae ENMT: external ear and nose normal, oropharynx normal Respiratory: normal respiratory effort, lungs clear to auscultation Cardiovascular: Rate/Rhythm: regular rate and regular rhythm Heart Sounds: + murmur S1 S2 Gastrointestinal (Abdomen): normal bowel sounds, soft, nontender, no hepatosplenomegaly Musculoskeletal: No pedal edema Neurologic: PERRL, EOMI, accommodation nl, no face palsy, no dysarthria Left hemiparesis Psychiatric: Alert and oriented to person, place and year. Flat affect Results & Data Results & Data ([facility]) Vital Signs (Past 12 Hours) Vital Signs Temp Pulse Pulse Resp BP BP Pulse Ox 06/08/22 11:29 36.8 C 81 16 123/74 95 06/08/22 07:42 36.5 C 69 14 125/75 96 06/08/22 07:31 71 06/08/22 04:00 36.4 C L 62 18 149/83 H 95 Laboratory Results Abnormal lab results 06/08/22 06/08/22 06/08/22 Range/Units 06:00 06:15 06:15 Eos # (Auto) 0.53 H (0-0.50) K/uL BUN/Creatinine Ratio 23.9 H (10-20) Glucose 100 H (70-99(Fasting)) mg/dl Urine Blood Trace H (Negative) U Epithel Cells (Auto) 5-10 H (0-5) /lpf (1) Cerebrovascular accident CVA mechanism: unspecified Qualified Code(s): I63.9 - Cerebral infarction, unspecified
[2022-06-08] MEDS: traMADol HCL 50 MG TABLET PO PRN (13:11)
[2022-06-08] MEDS ORDERED: GADOBUTROL 65ML VIAL IV ONE (16:58)
--- NOTE | 2022-06-08 17:43 | Magnetic Resonance Report ---
Brain MRI WITH AND WITHOUT CONTRAST HISTORY: Evaluate stroke. Left-sided weakness. Confusion. Headache. TECHNIQUE: Multiplanar multisequence MRI of the brain was performed both before and after the intrave nous administration of contrast. COMPARISON STUDY: Head CT 06/06/2022. FINDINGS: Bilateral anterior cerebral artery territory acute infarcts, right greater than left. The a maximus of restricted diffusion correspond to the right anterior cerebral infarct measures approximately 6 cm. The left LINDSAY territory infarct measures approximately 1.7 cm. The left LINDSAY territory infarct ma y represent an acute to subacute infarct given the faint area of restricted diffusion to Otherwise, t he midline structures are intact. Cytotoxic edema in position with the right medial frontal lobe infa rct. However, no significant midline shift. The ventricles are normal in size. Loss of the normal vincent w voids within the distal cervical internal carotid arteries corresponding to the site of known occlu raghav. The paranasal sinuses and mastoid air cells are clear. Scattered areas of periventricular white matter T2 hyperintensity are nonspecific but favor microvascular ischemic change. Small T2 hyperinte nse focus within the right cerebral peduncle likely corresponds to an old small lacunar infarct. No m ass or intracranial hemorrhage identified. There are 2 punctate foci of enhancement within the left f rontal lobe near the left frontal lobe infarcts. This is likely secondary to the subacute infarct. Co nsider follow-up brain MRI in 3-6 months to ensure resolution. IMPRESSION: 1. Bilateral LINDSAY territory infarcts, right greater than left, as described above. The left LINDSAY territ ory infarct may represent an acute to subacute infarct. 2. No significant midline shift. 3. There are 2 punctate foci of enhancement within the left frontal lobe near the left frontal lobe i nfarcts. This is likely secondary to the subacute infarct. Consider follow-up brain MRI in 3-6 months to ensure resolution. ACT 112: Negative or not required by law. Electronically signed by: Harinder Lanier M.D. 06/08/2022 5:41 PM
[2022-06-08] MEDS: ATORVASTATIN 40 MG TAB PO SCH (21:25)
[2022-06-09 05:59] LABS: Basophils % (auto) 1.2 %; Eosinophils # (auto) 0.56 K/uL (0-0.50); Hematocrit (blood only) 36.4 % (34.1-44.9); Hemoglobin 12.2 g/dl (12.0-16.0); Immature Granulocytes # (auto) 0.03 K/uL (0.00-0.02); Immature Granulocytes % (auto) 0.4 %; Lymphocytes # (auto) 1.71 K/uL (1.2-3.4); Lymphocytes % (auto) 21.3 %; Mean Corpuscular Hgb Conc 33.5 g/dL (32.0-36.0); Mean Corpuscular Volume 89.7 fL (80.0-100.0); Mean Platelet Volume 10.4 fL (9.4-12.3); Monocytes # (auto) 0.68 K/uL (0.24-0.82); Monocytes % (auto) 8.5 %; Neutrophils # (auto) 4.95 K/uL (1.4-6.5); Neutrophils % (auto) 61.6 %; Platelet Count 318 K/uL (130-400); RDW Coefficient of Variation 13.1 % (11.5-14.5); RDW Standard Deviation 43.4 fL (36.4-46.3); Red Blood Count 4.06 M/uL (3.93-5.22); White Blood Count 8.03 K/ul (4.8-10.8)
[2022-06-09] MEDS: MIDODRINE HCL 2.5 MG TAB PO SCH ×2 (06:26→11:46)
[2022-06-09 06:36] LABS: BUN Creatinine Ratio 27.5 (10-20); Calcium 9.3 mg/dl (8.5-10.1); Creatinine Clr Calc Pharmacy 67.4 ml/min; Est GFR (African American) 103.7 ml/min; Est GFR (Non-African American) 89.4 ml/min
[2022-06-09] MEDS: CLOPIDOGREL BISULFATE 75 MG TAB PO SCH (08:33)
[2022-06-09] MEDS: MULTIVITAMIN TAB PO SCH (08:33)
[2022-06-09] MEDS: ASPIRIN 81 MG ECTAB PO SCH (08:33)
[2022-06-09] MEDS: ENOXAPARIN INJ 40 MG/0.4 ML SYR SQ SCH (08:34)
[2022-06-09] MEDS ORDERED: STROKE PATIENT DISCHARGE STA (13:56)
--- NOTE | 2022-06-09 13:58 | Discharge Summary ---
Date of Service June 09, 2022 Admission HPI Per Admitting Provider History obtained from patient, family, and records. Medical history significant for CVA, PVD, hyperlipidemia, aortic stenosis, orthostatic hypotension on midodrine, prediabetes, past tobacco abuse. Patient was seen/confined at different ERs/hospitals in [place] for strokelike symptoms 6 weeks ago. Last confinement [facility] May 07 to 2021 for acute ischemic stroke presenting as presented left-sided weakness/syncope as a transfer from [facility] Pertinent diagnostics prior to [facility] confinement as follows : Brain MRI showed multiple small infarcts in the right hemisphere located at the right parietal cortex, right frontal white matter, right posterior periventricular white matter (largest lesion located adjacent to the atrium of the lateral ventricle on the right side measuring 6 mm.). MRA showed patent anterior communicating artery and widely patent vertebral and vascular arteries with patent right posterior communicating artery. CTA revealed complete occlusion of proximal bilateral internal carotid arteries. TTE showed moderate aortic stenosis with an EF of 60%, grade 1 diastolic dysfunction. Cerebral angiogram done at [facility] confirmed atherosclerotic disease with no evidence of moyamoya. Patient discharged to rehab facility on midodrine for orthostasis. Some improvement of left-sided weakness rehab stay from May 09-2021. Patient very active upon returning home as per family. 4 days ago, patient noted worsening left-sided weakness and trouble walking. No chest pain, no SOB. No slurred speech, no headache symptoms some neck pain without recollection of trauma. Did not tell family right away. Patient evaluated at [facility] ER 2 days ago. No focal neurologic deficits necessitating CT head as per ER provider documentation at time of exam. Patient discharged back home with negative work-up. Patient brought by family to ER for evaluation for worsening left-sided weakness. Left lower leg more swollen than usual as per family. Patient denies chest pain, SOB. Medical History as above Surgical History : None Family History : Stroke, blood clots Personal/Social history : Past tobacco abuse, no EtOH intake, retired from factory work Admission Exam Per Admitting Provider GENERAL: Comfortable, slightly anxious, no respiratory distress SKIN: Normal color, warm HEENT: Bespectacled, [place] palpebral conjunctivae, no ptosis, dry buccal mucosa NECK : Supple, no tenderness CHEST : Decreased breath sounds, no tenderness HEART : RRR, systolic murmur over sternal border and second right intercostal space ABDOMEN: Some distention, nontender EXTREMITIES : LLE swelling/tenderness, no other conspicuous deformities noted NEUROLOGIC : Coherent, no facial asymmetry, RUE/RLE 4/5, LUE 3/5 with some spasticity, LLE 2/5, gait and stance not assessed Principal Diagnosis Cerebrovascular accident (Stroke) Orthostatic hypotension Discharge Exam Constitutional + well hydrated; no acute distress Eyes PERRL, conjunctivae normal, anicteric sclerae ENMT external ear and nose normal, oropharynx normal Respiratory normal respiratory effort, lungs clear to auscultation Cardiovascular Rate/Rhythm: regular rate and regular rhythm Heart Sounds: + murmur Gastrointestinal (Abdomen) normal bowel sounds, soft, nontender, no hepatosplenomegaly Musculoskeletal No pedal edema Neurologic PERRL, EOMI, accommodation nl, no face palsy, no dysarthria Left hemiparesis Psychiatric Alert and oriented to person, place and time Flat affect Discharge Data Allergies Allergy/AdvReac Type Severity Reaction Status Date / Time No Known Allergies Allergy Unverified 06/06/22 20:24 Consultations 06/06/22 19:09 ED Decision to Admit Stat 06/07/22 00:03 Consult Neurology Routine Ordered Studies 06/06/22 16:11 CT angio head w con Stat Head CT will be reported separately. Ventricular system is normal. Basal cisterns are patent. An acute to subacute infarct within the anterior medial right frontal lobe is better depicted on the head CT. There is occlusion of the cervical portions of the bilateral internal carotid arteries with reconstitution at the level of the petrous portions. The petrous and cavernous portion of the right internal carotid artery is diminutive. The right M1 and M2 segments are patent. The right A1 segment is patent. Right A1 segment is patent. There is occlusion of a branch of the right anterior cerebral artery segment shown on axial image 117 of 249. This accounts for the infarct shown on head CT. The left A1, A2, M1 and M2 segments are patent. There is no intracranial aneurysm. persistence of the right posterior cerebral artery is noted. Intracranial portions of the vertebral arteries are patent. Basilar artery is patent. IMPRESSION: 1. Occlusion of the bilateral cervical internal carotid arteries with reconstitution at the level of the petrous portions of the carotids. 2. Occlusion of a branch of the right anterior cerebral artery which accounts for the acute to subacute infarct shown on head CT. CT angio neck with con Stat Emphysema is noted within the lung apices. There is no cervical lymphadenopathy. The bilateral vertebral arteries are patent. No stenosis or dissection within the cervical portions of the bilateral vertebral arteries is noted. The bilateral common carotid arteries are patent. There is moderate atherosclerotic plaque of the aortic arch. Extensive plaque within the bilateral cervical in ternal carotid arteries is noted. The bilateral cervical internal carotid arteries are occluded at their origins with reconstitution at the level of the petrous portions of the carotids. CT of the head will be reported separately. IMPRESSION: 1. Severe atherosclerotic disease with occlusion of the bilateral cervical internal carotid arteries with reconstitution at the level of the petrous portio ns of the carotids. 2. Patent bilateral vertebral arteries CT head/brain wo con Stat No acute intracranial hemorrhage, midline shift or mass effect is present. The ventricular system is unremarkable. Basal cisterns are patent. There are no extra-axial collections. White matter hypodensity suggests small vessel disease. Note is made of a 2.3 x 2 cm hypodense focus with loss of silva-white differentiation within the anterior medial right frontal lobe shown on axial image 17 of 32. There is no significant mass effect. A white matter hypodensity measuring 3.1 cm within the right frontoparietal region on axial image 23 is noted. IMPRESSION: 1. No acute intracranial hemorrhage or mass effect. 2. 2.3 x 2 cm hypodense focus with loss of silva-white differentiation within the anterior medial right frontal lobe. This represents an acute to subacute infarct. No mass effect. No hemorrhage. 3. 3.1 cm hypodense focus within the right matter of the right frontoparietal r egion. This favors small vessel disease although an additional acute to subacute infarct could appear similar. 06/06/22 20:13 US venous doppler LE LT Urgent There is normal compressibility, flow, and augmentation within the left lower extremity deep venous system. IMPRESSION: No DVT within the left lower extremity. 06/08/22 13:01 MR brain wo/w con Urgent Bilateral anterior cerebral artery territory acute infarcts, right greater than left. The area of restricted diffusion correspond to the right anterior cerebral infarct measures approximately 6 cm. The left LINDSAY territory infarct measures approximately 1.7 cm. The left LINDSAY territory infarct may represent an acute to subacute infarct given the faint area of restricted diffusion to Otherwise, the midline structures are intact. Cytotoxic edema in position with the right medial frontal lobe infarct. However, no significant midline shift. The ventricles are normal in size. Loss of the normal flow voids within the distal cervical internal carotid arteries corresponding to the site of known occlusion. The paranasal sinuses and mastoid air cells are clear. Scattered areas of periventricular white matter T2 hyperintensity are nonspecific but favor microvascular ischemic change. Small T2 hyperintense focus within the right cerebral peduncle likely corresponds to an old small lacunar infarct. No mass or intracranial hemorrhage identified. There are 2 punctate foci of enhancement within the left frontal lobe near the left frontal lobe infarcts. This is likely secondary to the subacute infarct. Consider follow-up brain MRI in 3-6 months to ensure resolution. IMPRESSION: 1. Bilateral LINDSAY territory infarcts, right greater than left, as described above. The left LINDSAY territory infarct may represent an acute to subacute infarct. 2. No significant midline shift. 3. There are 2 punctate foci of enhancement within the left frontal lobe near the left frontal lobe infarcts. This is likely secondary to the subacute infarct. Consider follow-up brain MRI in 3-6 months to ensure resolution. Hospital Course (1) Cerebrovascular accident: CVA Recent hospitalization for CVA last month Was noted to have multiple infarcts in the right hemisphere on MRI brain last month. CT angio head and neck then and now also noted complete occlusion of proximal bilateral internal carotid Also had orthostatic hypotension then and has been on midodrine CT head on admission this time noted 2.3 x 2 cm hypodense focus with loss of silva-white differentiation within the anterior medial right frontal lobe. This represents an acute to subacute infarct. No mass effect. No hemorrhage and 3.1 cm hypodense focus within the right matter of the right frontoparietal region. This favors small vessel disease although an additional acute to subacute infarct could appear similar. MRI showed bilateral acute infarct and subacute infarct Hence CVA with left hemiparesis. Could be possibly embolic CVA in nature Was evaluated by Neurology Continue Dual antiplatelet therapy and statin TTE noted EF 60-65, mild to mod , trace AR, trace TR Will need zio patch testing outpatient. PCP to help arrange this Patient has orthostatic hypotension Midodrine increased to 5mg tid Prediabetes, outpatient hemoglobin A1c of 5.10 May 2022 PT OT evaluated and rehab recommended Patient discharged to [facility] Patient to follow up with PCP and Neurology after rehab I had spoken to sister Janel yesterday and updated her. She had asked about possible vascular evaluation. We discussed that her CTA findings does not seem to be new as they had been reported before. She acknowledged that they are aware. No vascular surgeon coverage at the moment. Encouraged her that she can follow up with Vascular surgery outpatient for their opinion. Doubtful if patient will benefit as this may be high risk PCP to get zio patch testing to assess for dysrthmias such as Afib/Aflutter that may warrant anticoagulation Total Time Total Time Spent Total Time Spent (In Minutes): 50 Total Time Includes: Examination of the Patient, Discharge Planning and Medication Reconciliation Discharge Plan Discharge Items Patient Disposition: Transfer Inpatient Rehab Fac Reason For Visit: Left sided weakness Discharge Diagnosis: Cerebrovascular accident (Stroke) Orthostatic hypotension Activity: As commented below Activity Comment: Per physical therapist at rehab Non-emergency contact: Primary Care Provider Call non-emergency contact if: you have any medication questions and your symptoms worsen Follow-up/Referrals: Luis Curry MD [Primary Care Provider] - Diet: Heart Healthy Addtl Attending Provider Instructions: Mrs Navarrete You were brought to the hospital for worsening left sided weakness. You were evaluated by Neurologist. CT/MRI brain showed multiple strokes. You also had blockages in the blood vessels to the brain which is not new. You also had orthostatic hypotension and your Midodrine was increased to 5mg three times a day. Please continue the medications including aspirin, plavix and statin. You are being discharged to [facility] for rehab. Please follow up with your Primary Doctor and Neurologist on discharge from rehab. You will need zio patch testing to assess for abnormal heart rhythm. This can be arranged by your Primary Doctor. It was a pleasure taking care of you. Pending Studies at Discharge: No Stand-Alone Forms: My [facility] Skilled Items Patient informed of condition?: Yes DNR: No Discharge Level of Care: Acute rehab Communicable Disease: No Discharge Prognosis: Stable Lines: None Urinary Catheter: No Medications and DC Order Prescriptions: New midodrine 2.5 mg Tablet 5 mg PO TID@0700,1200,1700 Qty: 90 RF: 0 Continued multivitamin Tablet 1 tab PO DAILY RF: 0 atorvastatin 40 mg tablet 80 mg PO DAILY RF: 0 clopidogrel 75 mg tablet 75 mg PO DAILY RF: 0 aspirin 81 mg Tablet,Chewable 81 mg PO DAILY RF: 0 Discontinued midodrine 2.5 mg tablet 2.5 mg PO TID RF: 0 Discharge Orders: Discharge Order (Routine); Ordered 06/09/22 Ordered By: Kathya Khan Admission Data Admit Date/Time: 06/06/22 20:15 Attending Provider: Kathya Khan I. Admit Provider: Jack Grijalva Primary Care Provider: Luis Curry Other Providers: Jack Grijalva ; Fiona Sanders ; Charlie Fernandez Kathleen ; Delta Enriquez ; Anny Roth ; [facility] Other Interventions: Discharge Summary Assessment (RN) Last Done: 06/09/22 14:08
== END 2022-06-09 15:52 | DRG 65 ==
LOC: ED 16:03 → EDINP 20:15 → 2N 06-07 02:30